=== PATIENT | male | born 1975 | race Caucasian/White ===

== ENCOUNTER → 2021-10-01 | Outpatient (CLI) | payer MEDICAID ==
[~2021-10-01] VITALS: Ht 205.7 cm; Wt 166.2 kg
[~2021-10-01] MED LIST: AMPYRA10 MG PO; ANTIVERT 25MG25 MG PO; ASPIRIN 32325 MG/TAB PO; ASPIRIN E.C. 8181 MG PO; ATIVAN 1MG T1 MG/TAB PO; COPAXONE40 MG/ML SQ; COZAAR100 MG PO; CRANBERRY FRUI425 MG PO; DIOVAN 160MG160 MG PO; GLUCOPHAGE1000 MG PO; HCTZ 25MG TAB25 MG PO; JARDIANCE10 PO; LEXAPRO20 MG PO; LIPITOR20 MG PO; LOFIBRA134 MG PO; MELATONIN3 M1 PO; METAMUCIL0.52 G1 PO; MUCINEX 60600 MG/TA1 PO; PHARMASSURE ZIN50 MG PO; PRAVACHOL 40MG40 MG PO; PROTONIX 40MG T40 MG PO; STOOL SOFTENER100 M2 PO; VITAMIN C500 MG PO; VITAMIND3 5000 PO
[2021-10-01 10:58] VITALS: BP 120/83; PULSE 73; TEMP 97.9
[2021-10-01 12:17] VITALS: BP 114/75; PULSE 98
[2021-10-01 12:18] VITALS: BP 112/74; PULSE 95
[2021-10-01 12:19] VITALS: BP 124/79; PULSE 86
[2021-10-01 12:20] VITALS: BP 127/82; PULSE 84
== END ==
LOC: COL.CARD 10:10
DX: R07.9 Chest pain, unspecified (principal); E66.01 Morbid (severe) obesity due to excess calories; G71.00 Muscular dystrophy, unspecified
CPT/HCPCS: A9500; J2785

== ENCOUNTER → 2022-05-11 | Outpatient (CLI) | payer MEDICAID ==
[~2022-05-11] MED LIST changes: +IMDUR 30MG30 MG/TAB PO; +NUVIGIL50 MG PO
== END ==
LOC: COL.RAD 08:00
DX: G35 Multiple sclerosis (principal); M54.41 Lumbago with sciatica, right side; M54.42 Lumbago with sciatica, left side; G89.29 Other chronic pain; E55.9 Vitamin D deficiency, unspecified; R53.82 Chronic fatigue, unspecified; R20.0 Anesthesia of skin
CPT/HCPCS: A9575

== ENCOUNTER → 2022-05-18 | Outpatient (CLI) | payer MEDICAID | LOC: COL.RAD 07:25 | DX: M48.061 Spinal stenosis, lumbar region without neurogenic claudication (principal); M51.34 Other intervertebral disc degeneration, thoracic region; M48.04 Spinal stenosis, thoracic region; M48.05 Spinal stenosis, thoracolumbar region; R94.131 Abnormal electromyogram [EMG]; R20.0 Anesthesia of skin; G35 Multiple sclerosis | CPT/HCPCS: A9575 ==